=== PATIENT | female | born 1950 | race Caucasian/White ===

== ENCOUNTER → 2018-12-20 | Outpatient (CLI) | payer MEDICARE | END | disposition home or self-care (01) | LOC: CFH 10:03 | PROVIDERS: ATTEND Internal Medicine | DX: I51.7 Cardiomegaly (principal); Z87.891 Personal history of nicotine dependence | CPT/HCPCS: 93306 ==

== ENCOUNTER → 2020-12-25 | Outpatient (CLI) | payer OTHER ==
[~2020-12-25] MED LIST: VITAMINS
[2020-12-25 16:25] LABS: BASOPHILS % (AUTO) 1 % (0-1); EOSINOPHILS % (AUTO) 1 % (1-7); LYMPHOCYTES % (AUTO) 34 % (22-44); MEAN CORPUSCULAR HEMOGLOBIN 32.4 pg (27.0-34.8); MEAN CORPUSCULAR HGB CONC 34.4 g/dL (32.4-35.8); MEAN PLATELET VOLUME 6.9 fL (7.4-10.4); MONOCYTES % (AUTO) 6 % (2-9); NEUTROPHILS % (AUTO) 58 % (42-75); PLATELET COUNT 322 x10^3/uL (130-400); RED BLOOD COUNT 4.31 x10^6/uL (3.82-5.3); RED CELL DISTRIBUTION WIDTH 12.9 % (9.6-15.2)
[2020-12-25 16:26] LABS: MD NO
[2020-12-25 16:35] LABS: ALANINE AMINOTRANSFERASE 21 U/L (12-78); ALBUMIN 4.1 g/dL (3.4-5.0); ANION GAP 5 mmol/L (5-15); CALCIUM 8.8 mg/dL (8.5-10.1); CHLORIDE 104 mmol/L (98-107); CREATININE 0.96 mg/dL (0.55-1.02)
[2020-12-25 16:36] LABS: INTERNATIONAL NORMALIZED RATIO 1.02 (0.93-1.1); PROTHROMBIN TIME 10.9 Seconds (9.6-11.5)
[2020-12-25 16:37] LABS: ALKALINE PHOSPHATASE 79 U/L (45-117); BILIRUBIN,TOTAL 0.6 mg/dL (0.2-1.0); TOTAL PROTEIN 7.6 g/dL (6.4-8.2)
== END | disposition home or self-care (01) ==
LOC: STAR 15:04
PROVIDERS: ATTEND Obstetrics & Gynecology
DX: Z01.812 Encounter for preprocedural laboratory examination (principal); Z20.822 Contact with and (suspected) exposure to COVID-19; D06.9 Carcinoma in situ of cervix, unspecified; N83.209 Unspecified ovarian cyst, unspecified side
CPT/HCPCS: 36415; 71046; 80053; 85025; 85610; 85730; 86304; 93005; U0003

== ENCOUNTER 2020-12-30 09:07 | Day surgery (SDC) | payer OTHER ==
[2020-12-25 16:02] VITALS: BP 119/85
[~2020-12-30] VITALS: Ht 157.5 cm; Wt 52.8 kg
[~2020-12-30 09:07] MED LIST changes: +CEFAZOLIN 1,000 MG ONE; +DEXAMETHASONE 4 MG/ML, 1ML ONE; +FENTANYL PF 250 MCG/5ML ONE; +LIDOCAINE 4%, 4 ML SYR/CANN TP ONE; +LIDOCAINE-MPF 2% ,5ML ONE; +METOCLOPRAMIDE 5 MG/ML, 2ML ONE; +MIDAZOLAM 1 MG/ML, 2ML ONE; +ONDANSETRON 2MG/ML, 2ML ONE; +PROPOFOL 10 MG/ML, 20ML ONE; +ROCURONIUM 10MG/ML,5ML ONE
[2020-12-30] MEDS ORDERED: LACTATED RINGERS 1,000 ML IV SCH (10:00)
[2020-12-30] MEDS ORDERED: ACETAMINOPHEN 500 MG TABLET PO ONE (10:00)
[2020-12-30] MEDS ORDERED: ONDANSETRON ODT 8 MG PO ONE (10:00)
[2020-12-30] MEDS ORDERED: CHLORHEXIDINE 15 ML UDC PO ONE (10:00)
[2020-12-30] MEDS ORDERED: CEFOTETAN PMX 2GM/50ML 50 ML IVPB ONE (10:30)
[2020-12-30] MEDS ORDERED: INDOCYANINE GREEN 25 MG VIAL ONE ×4 (10:55→13:43)
[2020-12-30] MEDS ORDERED: BUPIVACAINE/PF 0.25% ONE (10:55)
[2020-12-30] MEDS ORDERED: EPINEPHRINE 1 MG/ML, 1ML ONE (10:56)
[2020-12-30] MEDS ORDERED: HEPARIN 1,000 UNITS/ML, 10ML ONE (10:57)
[2020-12-30] MEDS ORDERED: PROMETHAZINE 25 MG/ML, 1ML IVPush PRN (12:00)
[2020-12-30] MEDS ORDERED: DIAZEPAM 5 MG/ML, 2ML IVPush PRN (12:00)
[2020-12-30] MEDS ORDERED: ONDANSETRON 2MG/ML, 2ML IVPush PRN (12:00)
[2020-12-30] MEDS ORDERED: HYDROmorphone 1 MG/ML, 1ML INJ IVPush PRN (12:00)
[2020-12-30] MEDS ORDERED: OXYcodone 5 MG/5 ML ORAL.SOL UDC PO PRN (12:00)
[2020-12-30] MEDS ORDERED: DIPHENHYDRAMINE 50 MG/ML, 1ML IVPush PRN (12:00)
[2020-12-30] MEDS ORDERED: EPINEPHRINE 1 MG/ML, 1ML INFIL ONE (12:23)
[2020-12-30] MEDS ORDERED: BUPIVACAINE/PF 0.25% INFIL ONE (12:23)
[2020-12-30] MEDS ORDERED: SUGAMMADEX 200 MG/2 ML IVPush ONE (13:22)
[2020-12-30] MEDS ORDERED: FENTANYL PF 100 MCG/2ML ONE ×2 (13:42→14:08)
[2020-12-30] MEDS: FENTANYL PF 100 MCG/2ML IV PRN ×4 (13:44→14:36)
[2020-12-30] MEDS ORDERED: OXYcodone 5 MG/5 ML ORAL.SOL UDC ONE ×2 (14:04→14:08)
== END 2020-12-30 18:20 | disposition home or self-care (01) ==
LOC: OUT 09:07
PROVIDERS: ATTEND Obstetrics & Gynecology
DX: D27.1 Benign neoplasm of left ovary (principal); D27.0 Benign neoplasm of right ovary; N85.8 Other specified noninflammatory disorders of uterus; Z88.2 Allergy status to sulfonamides; Z88.8 Allergy status to other drugs, medicaments and biological substances; Z72.89 Other problems related to lifestyle; Z87.891 Personal history of nicotine dependence; Z98.890 Other specified postprocedural states
CPT/HCPCS: 36415; 58571; 86850; 86900; 86923; 88305; 88307; 88331; J0171; J0690; J1100; J2250; J2405; J2704; J3010; J7120; Q0162; J1644; J2765